=== PATIENT | female | born 1970 | race Caucasian/White ===

== ENCOUNTER 2017-12-24 12:57 | Inpatient (IN) ==
[2017-12-24] MEDS ORDERED: Isovue-370 500 ML INFUS..BTL IV ONE (13:38)
--- NOTE | 2017-12-24 13:48 | Emergency Department Note ---
START Narrative - START START: I examined this patient and my medical decision-making was reviewed with the Resident Physician. I agree with the documented findings, disposition and treatment plan as described except to the extent set forth below. 47 yo F here for abscess to perirectal region. no pain inside of rectum on my exam but she has extensive induration and large abscess to this left perirectal region extending to left buttock. will do CT pelvis with labs
[2017-12-24] MEDS ORDERED: Piperacillin/Tazobactam 3.375 GM in 0.9 % Sodium Chloride Mini Bag 100 ML IVPB ONE (13:57)
[2017-12-24] MEDS: 0.9 % Sodium Chloride 1,000 ML IVC SCH ×3 (14:22→22:26)
[2017-12-24 14:25] LABS: BUN/Creatinine Ratio 8 (6-26); Blood Urea Nitrogen 8 mg/dL (6-20); Carbon Dioxide 25 mEq/L (23-29); Chloride 101 mEq/L (98-107); Glucose 179 mg/dL (70-105); Osmolality,Calculated 279 (280-300); Potassium 3.9 mEq/L (3.5-5.1); Sodium 133 mEq/L (136-145); eGFR For African Americans > 60 (> 60); eGFR For Non-African Americans > 60 (> 60)
[2017-12-24] MEDS ORDERED: *HR* OxyCODONE/APAP 7.5/325 TABLET PO PRN (14:28)
[2017-12-24 14:39] LABS: Basophils # 0.1 K/mcL (0.0-0.2); Basophils % 0.3 %; Eosinophils # 0.1 K/mcL (0.0-0.6); Eosinophils % 0.3 %; Hemoglobin 11.7 g/dL (11.5-15.4); Immature Granulocytes % 0.8 % (0-4); Lymphocytes % 10.6 %; Mean Corpuscular HGB Conc 34.4 g/dL (31.6-35.5); Mean Corpuscular Hemoglobin 29.1 pg (28.0-33.3); Mean Corpuscular Volume 84.6 fL (83.0-100.0); Mean Platelet Volume 10.9 fL (9.4-12.4); Monocytes # 1.3 K/mcL (0.0-1.3); Monocytes % 6.8 %; Neutrophils # 15.4 K/mcL (1.6-8.9); Platelet Count 266 K/mcL (140-400); Red Blood Count 4.02 M/mcL (3.82-4.97); Red Cell Distribution Width 13.2 % (11.5-14.5); Segmented Neutrophils % 81.2 %
--- NOTE | 2017-12-24 14:43 | Emergency Department Note ---
Disposition Clinical Impression: Abscess of skin or subcutaneous tissue Qualifiers: Site of cutaneous abscess: buttock Qualified Code(s): L02.31 - Cutaneous abscess of buttock Disposition: Admitted As Inpatient Condition: Good Time of Disposition: 16:48 General Adult HPI - General Chief complaint: ED Skin/Abscess/Foreign Body Stated complaint: Rectal Abscess Time Seen by Provider: 12/24/17 13:34 Nursing Notes Reviewed: Yes Vital Signs Reviewed: Yes - History of Present Illness HPI Narrative: 5 day history of abscess to left buttocks. Has strained. To painful to be able to sit on. Is laying on her right side in bed. Does report a fever high of 100.4. Pain Scale: 8 - Related Data Home Medications Medication Instructions Recorded Confirmed Albuterol Sulfate [Proair Hfa] 2 puff IH Q4H PRN 12/24/17 12/24/17 Losartan Potassium [Cozaar] 50 mg PO DAILY 12/24/17 12/24/17 metFORMIN [Glucophage] 500 mg PO BID 12/24/17 12/24/17 Allergies Allergy/AdvReac Type Severity Reaction Status Date / Time Diclofenac [From Cataflam] Allergy See Verified 12/24/17 12:59 Comments All systems ED: reviewed and negative except as stated. Constitutional: Reports: fever (High of 100.4). Denies: chills ENT ED: Denies: congestion Cardiovascular: Denies: chest pain, palpitations, syncope Respiratory: Denies: cough, dyspnea Gastrointestinal: Denies: abdominal pain, nausea, vomiting, diarrhea Genitourinary: Denies: urgency, dysuria, frequency Musculoskeletal: Denies: back pain, neck pain Integumentary: Reports: lesions (To left buttocks. Extreme pain to this area as well.) Neurological: Denies: weakness Past Medical History - Past Medical History Attestation: Yes The following information was validated with the patient. Source: patient Medical history: Reports: no medical history - Social History Smoking Status: Never smoker Physical Exam - General Limitations: no limitations General appearance: alert, in distress (Laying on her right side in bed. Does appear to be in pain.) - Head Head exam: atraumatic, normocephalic, normal inspection - Eye Eye exam: Present: normal appearance, PERRL, EOMI. Absent: scleral icterus - ENT ENT exam: normal exam, normal oropharynx, mucous membranes moist - Neck Neck exam: Present: normal inspection, full ROM, trachea midline - Chest Chest inspection: Present: normal inspection, symmetric chest wall rise. Absent : tenderness - Respiratory Respiratory exam: Present: normal lung sounds bilaterally. Absent: respiratory distress, accessory muscle use - Cardiovascular Cardiovascular exam: Present: normal rhythm, tachycardia, normal heart sounds - Abdominal Exam Abdominal exam: Present: soft, Non-Tender. Absent: organomegaly - Extremities Exam Extremities exam: Present: normal inspection, full ROM, normal capillary refill. Absent: tenderness, pedal edema - Back Exam Back exam: Present: normal inspection, full ROM. Absent: tenderness - Neurological Exam Neurological exam: Present: alert, oriented X3 - Psychiatric Psychiatric exam: Present: normal affect, normal mood - Skin Skin exam: Present: warm, dry, intact. Absent: cyanosis - Expanded Skin Exam Type of lesion: Present: abscess 1 - Large abscess. Cellulitic area around it. Erythematous and warm. There is an area of fluctuance. Extends to the perineal area. Course Course Narrative: Female patient presents emergency department complaining of 5 day history of pain and erythema to her left buttocks. She states she cannot see the area but it has drained. She states she has never had this happen before. She states she cannot see the area to tell what looks like. She does report using Tylenol and Motrin with no pain relief. She states that she did have a fever as high as 100.5. She has no other complaints. No shortness of breath or chest pain. She does have a large cellulitic area to the left buttocks. There is a large fluctuant area as well to her perineal area. This extends to the vulvar area. Due to the extensive the of the abscess we will get a CT with contrast of patient's buttocks. She is requesting pain medication but states that she does not want anything very strong. She is agreeable to a Percocet at this time. We will get basic lab work and blood cultures. - Reevaluation(s) Reevaluation #1: CT of patient's showed a large abscess. I am concerned because of the extension of this abscess and that it affects the perineal area. We will place patient on vancomycin and Zosyn. We will also give her 3 L of fluid. She was tachycardic and has reported fevers at home. Surgery has been consult it. We will admit patient to the hospital for further evaluation of this. - Consultations Consultation #1: Dr Way states that he will be down to see the Pt. Time: 15:46 Vital Signs Temperature 98.7 F 12/24/17 12:57 Pulse Rate 122 12/24/17 12:57 Respiratory Rate 18 12/24/17 12:57 Blood Pressure 116/82 12/24/17 12:57 O2 Sat by Pulse Oximetry 99 12/24/17 12:57 Temperature 98.7 F 12/24/17 13:46 Pulse Rate 84 12/24/17 16:31 Respiratory Rate 18 12/24/17 16:31 Blood Pressure 117/73 12/24/17 16:31 O2 Sat by Pulse Oximetry 98 12/24/17 16:31 Oxygen Delivery Oxygen Delivery Room Air Medical Decision Making - Medical Records Medical records reviewed: Yes I reviewed the patient's medical records. - Lab Data Lab results reviewed: Yes I reviewed the patient's lab results. Result diagrams: 12/24/17 14:03 12/24/17 13:50 Lab Results 12/24/17 12/24/17 12/24/17 Range/Units 13:50 13:50 14:03 WBC (4.3-11.1) K/mcL RBC (3.82-4.97) M/mcL Hgb (11.5-15.4) g/dL Hct (35.3-44.9) % MCV (83.0-100.0) fL MCH (28.0-33.3) pg MCHC (31.6-35.5) g/dL RDW (11.5-14.5) % Plt Count (140-400) K/mcL MPV (9.4-12.4) fL Immature Gran % (0-4) % Seg Neutrophils % % Lymphocytes % % Monocytes % % Eosinophils % % Basophils % % Neutrophils # (1.6-8.9) K/mcL Lymphocytes # (0.6-4.6) K/mcL Monocytes # (0.0-1.3) K/mcL Eosinophils # (0.0-0.6) K/mcL Basophils # (0.0-0.2) K/mcL PT (9.4-12.1) Seconds INR Sodium 133 L (136-145) mEq/L Potassium 3.9 (3.5-5.1) mEq/L Chloride 101 (98-107) mEq/L Carbon Dioxide 25 (23-29) mEq/L BUN 8 (6-20) mg/dL Creatinine 0.98 (0.60-1.20) mg/dL Est GFR ( Amer) > 60 (> 60) Est GFR (Non-Af Amer) > 60 (> 60) BUN/Creatinine Ratio 8 (6-26) Glucose 179 H (70-105) mg/dL Calculated Osmolality 279 L (280-300) Lactic Acid 1.6 (0.5-2.2) mmol/L Calcium 9.0 (8.6-10.3) mg/dL Specimen Rejected Clotted 12/24/17 12/24/17 Range/Units 14:03 14:03 WBC 19.0 H (4.3-11.1) K/mcL RBC 4.02 (3.82-4.97) M/mcL Hgb 11.7 (11.5-15.4) g/dL Hct 34.0 L (35.3-44.9) % MCV 84.6 (83.0-100.0) fL MCH 29.1 (28.0-33.3) pg MCHC 34.4 (31.6-35.5) g/dL RDW 13.2 (11.5-14.5) % Plt Count 266 (140-400) K/mcL MPV 10.9 (9.4-12.4) fL Immature Gran % 0.8 (0-4) % Seg Neutrophils % 81.2 % Lymphocytes % 10.6 % Monocytes % 6.8 % Eosinophils % 0.3 % Basophils % 0.3 % Neutrophils # 15.4 H (1.6-8.9) K/mcL Lymphocytes # 2.0 (0.6-4.6) K/mcL Monocytes # 1.3 (0.0-1.3) K/mcL Eosinophils # 0.1 (0.0-0.6) K/mcL Basophils # 0.1 (0.0-0.2) K/mcL PT 15.3 H (9.4-12.1) Seconds INR 1.4 Sodium (136-145) mEq/L Potassium (3.5-5.1) mEq/L Chloride (98-107) mEq/L Carbon Dioxide (23-29) mEq/L BUN (6-20) mg/dL Creatinine (0.60-1.20) mg/dL Est GFR ( Amer) (> 60) Est GFR (Non-Af Amer) (> 60) BUN/Creatinine Ratio (6-26) Glucose (70-105) mg/dL Calculated Osmolality (280-300) Lactic Acid (0.5-2.2) mmol/L Calcium (8.6-10.3) mg/dL Specimen Rejected - Radiology Data Radiology results reviewed: Yes I reviewed the patient's radiology results. - EKG Data EKG #1 EKG attestation: Yes I reviewed and interpreted this EKG. EKG results narrative: Sinus tachycardia at a rate of 102. TN intervals 139. QRS duration is 101. QT is 317. QTC is 376. No signs of acute ischemia. No previous EKG to compare to.
[2017-12-24] MEDS ORDERED: 0.9 % Sodium Chloride 1,000 ML IVC ONE (15:15)
[2017-12-24 15:49] LABS: INR 1.4; Prothrombin Time 15.3 Seconds (9.4-12.1)
--- NOTE | 2017-12-24 16:37 | General Surg History&Physical ---
Date of Encounter: 12/24/17 Time of Encounter: 16:15 History of Present Illness Chief complaint: pain and swelling left maryanne anal buttocks, maryanne anal abscess HPI: Ms. Brice is a 47 year old, referred to surgical services for further evaluation of painful left buttock swelling and drainage. The patient indicates that symptoms have been progressive for the last 5 days with progressive pain and swelling. Findings are consistent with a perirectal abscess. CT of the pelvis demonstrates a large inflammatory fluid collection left buttocks. White count 19,000, hemoglobin 11.7, hematocrit 34.0. Neutrophils 15.4. PT 15.3 with INR 1.4, electrolytes notable for sodium 133 otherwise normal electrolytes, BUN, creatinine. Past medical history: Obesity, hypertension, diabetes Allergies: Diclofenac Medications: Metformin 1000 mg by mouth twice a day Losartan 50 mg by mouth twice a day Albuterol inhaler when necessary Surgical history: None Social history: G1, P1; Patient is , lives with her spouse; she is a traveling nurse. Patient is a former smoker, she quit approximately 15 or 20 years ago but admits to a pack per day for approximately 10 years. She admits to occasional alcoholic beverage and does not consume any illicit drugs. Family history: Noncontributory Physical examination: Obese, age-appropriate female lying on her right side due to the perirectal/left buttock pain. The patient is 1.68 m tall, 100. 516 kg, BMI 35.8 The patient is afebrile, 98.7; patient was tachycardic on presentation 122, currently pulse is 84, respirations 18 and unlabored, blood pressure 117/73. SPO2 on room air 98% Skin: Warm, no obvious jaundice Lungs: Clear to auscultation, no abdominal pain with deep inspiration. No audible wheezes or rales Cardiac: Regular rate, no appreciable murmur Abdomen: Obese but soft, nontender. No obvious intra-abdominal masses, no rebound. Active bowel sounds Rectal: Painful swelling left buttocks measuring approximately 8 cm in diameter. Exam limited by the tenderness Extremities: No obvious clubbing, cyanosis, or edema. Impression: 47-year-old female referred to surgical services after presenting to [facility] emergency department with a five-day history of progressive painful swelling left buttocks. Findings are consistent with a primary anal abscess which will require urgent I&D. Post operative admission to [facility] will be arranged. The procedure was discussed in detail with the patient. Risks include hemorrhage, infection, recurrent or persistent infection. Surgical consent has been obtained. Past Med Surg Social Fam HX - Past Medical History Medical history: no medical history - Social History Smoking Status: Never smoker Medications and Allergies 3 Allergy/AdvReac Type Severity Reaction Status Date / Time Diclofenac [From Cataflam] Allergy See Verified 12/24/17 12:59 Comments Review of Systems All systems PM: The remainder of the systems were reviewed and are negative General Surgery Exam Initial Vital Signs Temp Pulse Resp BP Pulse Ox 98.7 F 122 18 116/82 99 12/24/17 12:57 12/24/17 12:57 12/24/17 12:57 12/24/17 12:57 12/24/17 12:57 Results - Labs 12/24/17 14:03 12/24/17 13:50 Abnormal lab results WBC 19.0 K/mcL (4.3-11.1) H 12/24/17 14:03 Hct 34.0 % (35.3-44.9) L 12/24/17 14:03 Neutrophils # 15.4 K/mcL (1.6-8.9) H 12/24/17 14:03 PT 15.3 Seconds (9.4-12.1) H 12/24/17 14:03 Sodium 133 mEq/L (136-145) L 12/24/17 13:50 Glucose 179 mg/dL (70-105) H 12/24/17 13:50 Calculated Osmolality 279 (280-300) L 12/24/17 13:50 Diabetes panel 12/24/17 Range/Units 13:50 Sodium 133 L (136-145) mEq/L Potassium 3.9 (3.5-5.1) mEq/L Chloride 101 (98-107) mEq/L Carbon Dioxide 25 (23-29) mEq/L BUN 8 (6-20) mg/dL Creatinine 0.98 (0.60-1.20) mg/dL Glucose 179 H (70-105) mg/dL Calcium 9.0 (8.6-10.3) mg/dL Calcium panel 12/24/17 Range/Units 13:50 Calcium 9.0 (8.6-10.3) mg/dL Pituitary panel 12/24/17 Range/Units 13:50 Sodium 133 L (136-145) mEq/L Potassium 3.9 (3.5-5.1) mEq/L Chloride 101 (98-107) mEq/L Carbon Dioxide 25 (23-29) mEq/L BUN 8 (6-20) mg/dL Creatinine 0.98 (0.60-1.20) mg/dL Glucose 179 H (70-105) mg/dL Calcium 9.0 (8.6-10.3) mg/dL Adrenal panel 12/24/17 Range/Units 13:50 Sodium 133 L (136-145) mEq/L Potassium 3.9 (3.5-5.1) mEq/L Chloride 101 (98-107) mEq/L Carbon Dioxide 25 (23-29) mEq/L BUN 8 (6-20) mg/dL Creatinine 0.98 (0.60-1.20) mg/dL Glucose 179 H (70-105) mg/dL Calcium 9.0 (8.6-10.3) mg/dL All other labs normal.
[2017-12-24] MEDS ORDERED: *HR* FentaNYL (PF) 100 MCG/2 ML VIAL IVP ONE (18:15)
[2017-12-24] MEDS ORDERED: Acetaminophen IV 1,000 MG/100 ML INFUS..BTL ONE (18:42)
[2017-12-24] MEDS ORDERED: Acetaminophen IV 1,000 MG/100 ML INFUS..BTL IVPB ONE (18:42)
[2017-12-24] MEDS ORDERED: Ringers Solution, Lactated 1,000 ML ONE ×2 (18:44→20:15)
--- NOTE | 2017-12-24 18:55 | Anesthesia Evaluation PreOp ---
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 Any Significant HX Other Medical History: Diabetes Type II (Accu Check 133 today), Other (Obese BMI 35) Anesthesia History: No Prior Anesthetic Complications : No (Patient States Menopausal, refused test) Alcohol Use: none Drug use: none Medications and Allergies Albuterol Sulfate [Proair Hfa] 2 puff IH Q4H PRN 12/24/17 [History] Losartan Potassium [Cozaar] 50 mg PO DAILY 12/24/17 [History] metFORMIN [Glucophage] 500 mg PO BID 12/24/17 [History] 3 Allergy/AdvReac Type Severity Reaction Status Date / Time Diclofenac [From Cataflam] Allergy See Verified 12/24/17 12:59 Comments - Meds/Allergy Pre-op Review Medications Reviewed: Yes Allergies Reviewed: Yes Beta Blockers on Current Med List: No Anesthesia Results - Labs 12/24/17 14:03 12/24/17 13:50 Laboratory Tests 12/24/17 12/24/17 12/24/17 13:50 14:03 14:03 Hgb 11.7 Hct 34.0 L Plt Count 266 PT 15.3 H INR 1.4 Sodium 133 L Potassium 3.9 BUN 8 Creatinine 0.98 POC Glucose 12/24/17 16:33 Hgb Hct Plt Count PT INR Sodium Potassium BUN Creatinine POC Glucose 133 H Anesthesia Exam Vital Signs/O2 Sat/Glucose, Most Current Pulse Resp BP Pulse Ox 12/24/17 16:31 84 18 117/73 98 12/24/17 15:47 93 18 96/46 98 Height: 5'6 Weight: 221 lbs NPO (# of Hours): MN Pain Scale: 4 - HEENT Pupil (Motor): Pupils equal, EOMI Mallampati: III Teeth: Normal Oral Opening: Less than or equal to 3 - DROP WIRE ALIGNER LOC: Oriented DROP WIRE ALIGNER Motor: Normal RUE, Normal LUE, Normal RLE, Normal LLE, Normal Face DROP WIRE ALIGNER Sensory: Normal: RUE, LUE, RLE, LLE, Face - Cardiac Rhythm: Regular Murmur: None JVD: No Carotid Bruit: No - Pulmonary Breath Sounds: bilateral Clear Respiratory Effort: Symmetrical Anesthesia Assess/Plan ASA Score: 3 (Obese HTN DM) Modified Antonino Scale for Level of Consciousness: Cooperative, oriented, and tranquil Anesthetic Plan: General Monitoring Plan: Standard Monitors Recovery Plan: PACU (Discussed GA, agrees to proceed)
[2017-12-24] MEDS ORDERED: Lidocaine -MPF 2% 2 ML VIAL ONE (19:03)
[2017-12-24] MEDS ORDERED: *HR* Propofol 200 MG/20 ML VIAL IVP ONE (19:03)
[2017-12-24] MEDS ORDERED: *HR* FentaNYL (PF) 100 MCG/2 ML VIAL ONE ×2 (19:03→19:40)
[2017-12-24] MEDS ORDERED: Albuterol 2.5 MG/3 ML NEBULIZER ONE (19:04)
[2017-12-24] MEDS ORDERED: Famotidine 20 MG/2 ML VIAL ONE (19:08)
[2017-12-24] MEDS ORDERED: Ketorolac 30 MG/ML VIAL ONE (19:41)
[2017-12-24] MEDS ORDERED: *HR* PHENYLEPHRINE 1,000 MCG/10 ML SYRINGE IVP ONE (19:41)
--- NOTE | 2017-12-24 20:16 | Operative Note ---
Date of procedure: 12/24/17 Pre-op diagnosis: Left perianal abscess Post-op diagnosis: same Procedure: Incision and drainage perianal abscess Complications: None apparent Anesthesia: GETA Surgeon: Lionel Way Was there an perioperative assistant present: Yes Bindery Worker: Venu Miller Estimated blood loss (cc): 20 IV fluids (cc): 500 Specimen: aerobic and anaerobic cultures Condition: stable Disposition: PACU Procedure in Detail: The patient was brought to the operating room and placed supine on the procedure table. The patient was appropriately identified as to person, procedure, and laterality. The accuracy of this information was confirmed by the patient and procedure team. The patient was then intubated and anesthetized under the supervision of Dr. Tee Kwon. The patient was placed in high lithotomy position using yellowfin stirrups. The buttocks and perineum were prepped and draped in usual sterile fashion. The skin was incised over the readily apparent left perianal abscess. Incision was extended into the subcutaneous tissue entering a foul-smelling abscess cavity. Aerobic and anaerobic cultures were obtained. Internal loculations were bluntly dissected. The abscess cavity was irrigated with warm sterile saline using a pulsatile irrigation system (Pulsavac plus) and 3 L normal saline. The wound was then packed with one-inch iodoform gauze. Fluffy gauze dressings were applied followed by mesh pants. The patient was taken to recovery in stable condition. Needle, sponge, and instrument counts were correct at the close of the case.
--- NOTE | 2017-12-24 20:38 | Anesthesia Evaluation Post Op ---
Date of Encounter: 12/24/17 Time of Encounter: 21:08 Notes: Patient's vital signs have been reviewed. Patient is stable postoperatively and has adequately recovered from anesthesia. Patient is determined to have stable airway patency and respiratory function including respiratory rate and oxygen saturation. Patient has a stable heart rate, blood pressure and adequate hydration. Patients mental status is acceptable. Patients temperature is appropriate. Pain and nausea are adequately controlled. - Discharge PostOp Status: Transfer Patient to floor
[2017-12-24] MEDS ORDERED: Dextrose Gel 15 GM/37.5 ML TUBE PO PRN (21:27)
[2017-12-24] MEDS ORDERED: *HR* Dextrose 50 % in Water (Syg) 50 ML SYRINGE IVP PRN (21:27)
[2017-12-24] MEDS ORDERED: Ondansetron 4 MG/2 ML VIAL IVP PRN (21:27)
[2017-12-24] MEDS ORDERED: D5% in Water 1,000 ML IVC PRN (21:27)
[2017-12-24] MEDS: Piperacillin/Tazobactam 3.375 GM in 0.9 % Sodium Chloride Mini Bag 100 ML IVPB SCH (22:26)
[2017-12-24] MEDS: Insulin LISPRO 300 UNITS/3 ML VIAL SQ SCH (22:33)
[2017-12-24] MEDS: Acetaminophen 325 MG TABLET PO PRN (22:34)
[2017-12-25 01:21] LABS: Basophils % 0.2 %; Hematocrit 31.8 % (35.3-44.9); Hemoglobin 10.5 g/dL (11.5-15.4); Immature Granulocytes % 1.2 % (0-4); Lymphocytes # 1.3 K/mcL (0.6-4.6); Lymphocytes % 7.8 %; Mean Corpuscular Hemoglobin 28.1 pg (28.0-33.3); Mean Platelet Volume 10.2 fL (9.4-12.4); Monocytes # 0.5 K/mcL (0.0-1.3); Monocytes % 3.2 %; Neutrophils # 14.7 K/mcL (1.6-8.9); Platelet Count 246 K/mcL (140-400); Red Blood Count 3.74 M/mcL (3.82-4.97); Red Cell Distribution Width 13.6 % (11.5-14.5); Segmented Neutrophils % 87.6 %
[2017-12-25] MEDS: Piperacillin/Tazobactam 3.375 GM in 0.9 % Sodium Chloride Mini Bag 100 ML IVPB SCH ×3 (05:55→22:06)
[2017-12-25] MEDS: Acetaminophen 325 MG TABLET PO PRN (05:55)
[2017-12-25] MEDS: *HR* Metformin 500 MG TABLET PO SCH ×2 (08:56→17:10)
[2017-12-25] MEDS: *HR* OxyCODONE/APAP 5/325 TABLET PO PRN ×2 (09:00→15:25)
[2017-12-25] MEDS: Insulin LISPRO 300 UNITS/3 ML VIAL SQ SCH ×3 (09:01→17:09)
--- NOTE | 2017-12-25 11:44 | General Surgery Progress Note ---
Date of Encounter: 12/25/17 Time of Encounter: 11:20 Subjective Patient reports: feels better, pain is less, voiding w/o difficulty Narrative: General Surgery - POD #1 Feeling much improved, pain diminished. Inflammatory changes decreased. Patient voicing no complaints Portion of packing removed. Wound appears clean. No purulent drainage observed Afebrile, 97.5, pulse 75, respirations 16, blood pressure low at 84/54. Lungs: Clear, no abdominal pain a deep inspiration Abdomen: Soft, nontender Accu-Cheks: Running in the 200s; will increase sliding scale coverage Laboratories: White count 16.8 (previously 19.0); hemoglobin 10.5, hematocrit 31.8 - likely reflective of the IV fluids administered perioperatively Operative cultures pending Impression/Plan: Postoperative day 1, status post incision and drainage perirectal abscess. Acceptable postoperative status continue to monitor blood pressure and blood sugars. Objective Vital Signs - Last 8 Hours Temp Pulse Resp BP Pulse Ox 12/25/17 10:53 97.7 F 75 16 84/54 94 12/25/17 08:30 93 12/25/17 06:56 97.6 F 75 16 87/50 93 12/25/17 05:00 97.4 F L 66 15 87/59 95 Intake and Output 12/24/17 12/25/17 12/25/17 23:59 07:59 15:59 Intake Total 1100 / 1100 220 / 220 480 / 480 Output Total 800 / 800 0 / 0 Balance 1090 / 1090 -580 / -580 480 / 480 Intake: IV Fluids 1100 / 1100 100 / 100 Lactated Ringers 1,000 ML @ 0 1000 / 1000 mls/hr .ROUTE .STK-MED ONE Rx#: [id number] Ofirmev 1,000 mg/100 ml 1,000 100 / 100 mg In 100 ml @ 400 mls/hr IVPB ONCE ONE Rx#:[id number] Zosyn 3.375 GM In 0.9 % Sodium 100 / 100 Chloride (Mini-Bag +) 100 ML @ 25 mls/hr IVPB Q8H [facility] Rx#: [id number] Oral 120 / 120 480 / 480 Output: Urine 800 / 800 0 / 0 Estimated Blood Loss Other: Meal Breakfast Percent of Meal Consumed 100% # Voids 2 # Bowel Movements 0 Weight 100.8 kg Blood Glucose* 184 243 Patient Weight 12/25/17 23:59 Weight 100.8 kg - Labs 12/25/17 01:07 12/24/17 13:50 Consult Discharge Plan - Plan Referrals: Carmelina Rasheed, [facility] [Primary Care Provider] -
[2017-12-25] MEDS: 0.9 % Sodium Chloride 1,000 ML IVC SCH (14:03)
[2017-12-25] MEDS: *HR* OxyCODONE Immed Rel 5 MG TABLET PO PRN (19:50)
[2017-12-26] MEDS: *HR* OxyCODONE/APAP 5/325 TABLET PO PRN ×2 (01:19→20:04)
[2017-12-26] MEDS: *HR* OxyCODONE Immed Rel 5 MG TABLET PO PRN (03:51)
[2017-12-26] MEDS: Piperacillin/Tazobactam 3.375 GM in 0.9 % Sodium Chloride Mini Bag 100 ML IVPB SCH ×3 (05:57→21:30)
[2017-12-26] MEDS: 0.9 % Sodium Chloride 1,000 ML IVC SCH (05:59)
--- NOTE | 2017-12-26 07:08 | Electrocardiograph Report ---
[address] [address] Test Date: 2017-12-24 Pat Name: [facility] Department: 103 Room: 3A46 Gender: F Line Appliance Assembler: TMR : [id number] Requested By: Arabella Cade Order Number: [id number] Reading MD: Alistair Skaggs Measurements Intervals Thornton Rate: 102 P: 46 MO: 139 QRS: 60 QRSD: 101 T: 48 QT: 317 QTc: 376 Interpretive Statements SINUS TACHYCARDIA Electronically Signed On 12-26-2017 7:06:50 EDT by Alistair Skaggs
[2017-12-26] MEDS: Insulin LISPRO 300 UNITS/3 ML VIAL SQ SCH ×3 (08:38→17:58)
[2017-12-26] MEDS: *HR* Metformin 500 MG TABLET PO SCH ×2 (09:33→17:58)
--- NOTE | 2017-12-26 12:34 | General Surgery Progress Note ---
Date of Encounter: 12/26/17 Time of Encounter: 12:30 Subjective Patient reports: still having pain Narrative: General Surgery - POD #2 Patient complaining of pain. No fever, pulse 7783, respirations 14, blood pressure remains low ranging 89/50-96/59 Operative cultures show numerous gram-negative rods - final identification and sensitivity still pending Lungs: Clear, no abdominal pain on deep inspiration Abdomen: Soft nontender The surgical wound left buttocks appears intact. The remainder of the packing was removed. No obvious purulence identified. Repeat CBC pending Impression: Postoperative day #2, status post incision and drainage left perianal abscess Packing has been removed wound appears intact Plan: Continue IV Zosyn pending culture results Wound irrigations/sitz bath Objective Vital Signs - Last 8 Hours Temp Pulse Resp BP Pulse Ox 12/26/17 11:50 98.1 F 83 14 89/50 94 12/26/17 06:54 98.0 F 78 14 96/59 93 Intake and Output 12/25/17 12/26/17 12/26/17 23:59 07:59 15:59 Intake Total 340 / 340 1100 / 1100 340 / 340 Output Total 650 / 650 300 / 300 0 / 0 Balance -310 / -310 800 / 800 340 / 340 Intake: IV Fluids 100 / 100 1100 / 1100 100 / 100 0.9 % Sodium Chloride 1,000 ML 1000 / 1000 @ 60 mls/hr IVC .[id number] [facility] Rx #:[id number] Zosyn 3.375 GM In 0.9 % Sodium 100 / 100 100 / 100 100 / 100 Chloride (Mini-Bag +) 100 ML @ 25 mls/hr IVPB Q8H [facility] Rx#: [id number] Oral 240 / 240 0 / 0 240 / 240 Output: Urine 650 / 650 300 / 300 0 / 0 Other: Meal Dinner Breakfast Percent of Meal Consumed 15% 85% # Voids 1 Weight 101.3 kg Blood Glucose* 158 122 138 Patient Weight 12/26/17 23:59 Weight 101.3 kg - Labs 12/25/17 01:07 12/24/17 13:50 Consult Discharge Plan - Plan Referrals: Carmelina Rasheed, [facility] [Primary Care Provider] -
[2017-12-26 14:13] LABS: Basophils # 0.1 K/mcL (0.0-0.2); Basophils % 0.4 %; Eosinophils # 0.1 K/mcL (0.0-0.6); Eosinophils % 0.7 %; Hematocrit 35.5 % (35.3-44.9); Hemoglobin 11.6 g/dL (11.5-15.4); Immature Granulocytes % 1.1 % (0-4); Lymphocytes # 4.7 K/mcL (0.6-4.6); Lymphocytes % 30.9 %; Mean Corpuscular HGB Conc 32.7 g/dL (31.6-35.5); Mean Corpuscular Hemoglobin 28.2 pg (28.0-33.3); Mean Corpuscular Volume 86.2 fL (83.0-100.0); Mean Platelet Volume 10.5 fL (9.4-12.4); Monocytes # 0.8 K/mcL (0.0-1.3); Monocytes % 5.3 %; Neutrophils # 9.4 K/mcL (1.6-8.9); Platelet Count 328 K/mcL (140-400); Red Blood Count 4.12 M/mcL (3.82-4.97); Red Cell Distribution Width 13.6 % (11.5-14.5); Segmented Neutrophils % 61.6 %
[2017-12-27] MEDS: Piperacillin/Tazobactam 3.375 GM in 0.9 % Sodium Chloride Mini Bag 100 ML IVPB SCH (05:14)
[2017-12-27] MEDS: Insulin LISPRO 300 UNITS/3 ML VIAL SQ SCH ×2 (08:25→12:28)
[2017-12-27] MEDS: *HR* Metformin 500 MG TABLET PO SCH (08:47)
[2017-12-27] MEDS: Acetaminophen 325 MG TABLET PO PRN (08:54)
[2017-12-27 10:03] VITALS: BP 120/76
--- NOTE | 2017-12-27 11:48 | General Surgery Progress Note ---
Date of Encounter: 12/27/17 Time of Encounter: 11:44 Subjective Patient reports: no new complaints, feels better Narrative: General Surgery - POD #3 progress note/discharge Afebrile, currently 97.3, pulse 89, respirations 18, blood pressure 120/76 Feeling much improved; no recurrent left buttock or perianal pain Left perianal abscess clean dry and healing well. Operative cultures yielding an Escherichia coli. Anaerobic results presumably still pending Lungs: Clear, no abdominal pain on deep inspiration Abdomen: Obese, soft, nontender. Active bowel sounds Laboratories: Leukocytosis trending towards normal, most recent labs - white count 15.2, hemoglobin 11.6, hematocrit 35.5. Neutrophils also trending towards normal. Impression: Perianal abscess, postoperative day 3, status post incision and drainage of this abscess Status improved, acceptable status for discharge Plan: Discharge home Continue antibiotics, changing the Zosyn to Augmentin Patient to wash, irrigate the perianal abscess in the shower Outpatient follow-up 12/30/17. Patient to resume home meds Objective Vital Signs - Last 8 Hours Temp Pulse Resp BP Pulse Ox 12/27/17 10:01 97.3 F L 89 18 120/76 95 12/27/17 06:29 98.6 F 82 16 133/84 93 12/27/17 03:55 98.8 F 83 14 130/82 94 Intake and Output 12/26/17 12/27/17 12/27/17 23:59 07:59 15:59 Intake Total 940 / 940 250 / 250 240 / 240 Output Total 1600 / 1600 800 / 800 900 / 900 Balance -660 / -660 -550 / -550 -660 / -660 Intake: IV Fluids 100 / 100 100 / 100 Zosyn 3.375 GM In 0.9 % Sodium 100 / 100 100 / 100 Chloride (Mini-Bag +) 100 ML @ 25 mls/hr IVPB Q8H [facility] Rx#: [id number] Oral 840 / 840 150 / 150 240 / 240 Output: Urine 1600 / 1600 800 / 800 900 / 900 Other: Meal Dinner Breakfast Percent of Meal Consumed 25% 70% # Voids 1 Weight 100.9 kg Blood Glucose* 147 122 139 Patient Weight 12/27/17 23:59 Weight 100.9 kg - Labs 12/26/17 13:56 12/24/17 13:50 Consult Discharge Plan - Plan Referrals: Carmelina Rasheed CNP [Primary Care Provider] - Lionel Way MD [Non-Partnered Physician] -
--- NOTE | 2017-12-27 11:56 | Discharge Summary ---
Outpatient Proc Discharge Plan - Plan Additional Instructions: Diabetic diet Activity as tolerated Patient may shower, wash with soap and water. Patient to irrigate left maryanne- anal wound in the shower. Dry gauze dressing. Prescription for Augmentin 500 mg by mouth 3 times a day, #21 Prescription for Percocet 5/325, #8, one every 6 hours as needed for pain not relieved by [id number] pain meds Tylenol, ibuprofen, Motrin, Advil, etc. as needed for pain Outpatient follow-up in the office, 12/30/17. Patient to resume usual home meds Prescriptions: Amoxicillin/Clavulanate [Augmentin] 500 mg PO TID #21 tablet OxyCODONE/APAP 5/325 [Percocet 5/325 MG] 1 each PO Q6H PRN 2 Days #8 tablet PRN Reason: Pain Home Medications: Albuterol Sulfate [Proair Hfa] 2 puff IH Q4H PRN 12/24/17 [History] Losartan Potassium [Cozaar] 50 mg PO DAILY 12/24/17 [History] metFORMIN [Glucophage] 500 mg PO BID 12/24/17 [History] Acetaminophen [Tylenol] 650 mg PO Q6H PRN tablet 12/27/17 [Rx] Amoxicillin/Clavulanate [Augmentin] 500 mg PO TID #21 tablet 12/27/17 [Rx] Docusate [Colace] 100 mg PO BID capsule 12/27/17 [Rx] OxyCODONE/APAP 5/325 [Percocet 5/325 MG] 1 each PO Q6H PRN 2 Days #8 tablet [Rx]
== END 2017-12-27 14:53 | disposition home or self-care (01) | DRG 357 ==
LOC: 3ANU 12:57 → EMEROO 12:57 → 3ANU 18:40
PROVIDERS: ADMIT Surgery; ATTEND Surgery